=== PATIENT | female | born 1930 | race Caucasian/White ===

== ENCOUNTER 2016-12-22 12:43 | Emergency (ER) | payer MEDICARE, BC ==
[2016-12-22 12:08] LABS: BASO % 0.3 % (0-2); EOS % 0.9 % (0-7); EOSINOPHIL ABSOLUTE COUNT 0.1 tho/cmm (0.0-0.7); HCT-HEMATOCRIT 41.6 % (34.0-49.0); HGB-HEMOGLOBIN 13.8 gm/dl (12.0-15.5); IMMATURE GRANULOCYTES ABSOLUTE 0.03 tho/cmm (0-0.03); IMMATURE GRANULOCYTES PERCENT 0.3 % (0-0.3); LYMPH % 12.2 % (20-45); LYMPH ABSOLUTE COUNT 1.1 tho/cmm (0.8-4.5); MCH (MEAN CORPUSCULAR HGB) 31.1 pg (28.0-32.0); MCHC MEAN CORPUSCULAR HGB CONC 33.2 % (32.0-36.0); MCV (MEAN CELL VOLUME) 93.7 fl (82.0-96.0); MEAN PLATELET VOLUME 9.9 cmc (9.4-12.4); MONO % 5.1 % (0-12); MONOCYTE ABSOLUTE COUNT 0.5 tho/cmm (0.0-1.2); NEUTROPHIL ABSOLUTE COUNT 7.5 tho/cmm (1.6-8.0); NEUTROPHIL-AUTOMATED 7.5 tho/cmm (1.6-8.0); NEUTROPHILS % 81.2 % (40-80); PLATELET COUNT 202 tho/cmm (150-450); RED BLOOD COUNT 4.44 mil/cmm (4.00-5.20); RED CELL DISTRIBUTION WIDTH 13.6 % (12.4-16.4); WHITE BLOOD COUNT 9.2 tho/cmm (4.0-10.0)
[2016-12-22 12:21] LABS: ANION GAP 14 mmol/L (0-20); BLOOD UREA NITROGEN 17 mg/dl (6-24); CARBON DIOXIDE-VENOUS 24 mmol/L (22-32); CHLORIDE 110 mmol/l (96-110); CREATININE 0.88 mg/dl (0.50-1.10); GLUCOSE 129 mg/dL (70-110); SODIUM 144 mmol/L (135-145); eGFR VALUE FOR BLACK 68 mL/Min
[2016-12-22 12:32] LABS: POTASSIUM 3.9 mmol/L (3.7-5.1)
[~2016-12-22 12:43] MED LIST: ACIPHEX20 MG; ALLEGRA ALLERG180 M1 PO; ANTIVERT12.5 M1 PO; ANTIVERT25 MG PO; ARTHX DS CAPSUL1 CAP; ASPIR-LOW81 MG PO; ASPIRIN EC81 MG PO; ATARAX25 MG PO; BENADRYL25 M3 PO; CALCIUM; CALCIUM CITRATE1 TA PO; CELEBREX200 M1 PO; CENTRUM SILVER1 EAC6 PO; CENTRUM SILVER1 TA PO; CITRACAL + D31 EACH PO; CITRACAL-VIT D1 EAC4 PO; FISH OIL 1,0001 EA10 PO; FISH OIL 11000 MG/CA PO; FOLIC ACID; FOLIC ACID0.8 MG PO; GINKGO BILOBA; GLUCOSAMINE CH1 EAC8 PO; GLUCOSAMINE500 MG PO; H; LOVENOX40 MG/0.4; MECLIZINE HCL12.5 M3 PO; MELOXICAM15 MG PO; MEMANTINE PO; MIRALAX12 EA PO; MIRALAX17 G2 PO; MULTIVITAMIN1 TAB; TUMS300 M1 PO; TYLENOL325 M2 PO; TYLENOL325 MG PO; TYLENOL650 MG PO; VESICARE5 MG; VYTORIN 10/40 T1 TAB; ZOFRAN4 M2 PO
== END 2016-12-22 15:06 ==
LOC: EDMED 12:43
PROVIDERS: Emergency Medicine
DX: R42 Dizziness and giddiness (principal); Z90.49 Acquired absence of other specified parts of digestive tract; Z90.89 Acquired absence of other organs; Z90.710 Acquired absence of both cervix and uterus; Z98.890 Other specified postprocedural states
CPT/HCPCS: G8978-GP-CJ; G8979-GP-CJ; G8980-GP-CJ